=== PATIENT | female | born 1990 | race Caucasian/White ===

== ENCOUNTER 2022-01-16 21:20 | Emergency (ER) | payer OTHER ==
[2022-01-17] MEDS ORDERED: HYDROCODON-ACE1 EAC2 PO (03:25)
== END 2022-01-17 03:22 | disposition home or self-care (01) ==
LOC: ER1 21:20
DX: S62.391A Other fracture of second metacarpal bone, left hand, initial encounter for closed fracture (principal); W20.8XXA Other cause of strike by thrown, projected or falling object, initial encounter; Y92.009 Unspecified place in unspecified non-institutional (private) residence as the place of occurrence of the external cause
CPT/HCPCS: 29125; 73130; 99283